=== PATIENT | female | born 1995 | race Caucasian/White ===

== ENCOUNTER 2020-02-04 10:46 | Emergency (ER) | payer OTHER ==
--- NOTE | 2020-02-04 11:41 | ER Document Report ---
ED Medical Screen (RME) - General Chief Complaint: Palpitations Stated Complaint: PALPITATIONS Time Seen by Provider: 02/04/20 11:32 - HPI Notes: 02/04/20 11:38 24-year-old female presents emergency room for evaluation after having a syncopal event yesterday at work. Patient states she was standing with a group of friends and then started to walk away and then she had blurred vision and passed out, states her friends caught her. She states that she came right to. Denies that this is ever happened before. Reports lately she has been having a "thumping" sensation in her chest, she did see her PCP 2 weeks ago and states a ll of her labs were normal. Patient states she does not smoke does not use any workout supplements or any illicit drug use. She does drink a couple coffee in the morning. Patient denies ever having a syncopal event like this before. surgical history of back surgery and a . Does not take any everyday medications. Denies any current chest pain shortness of breath, nausea vomiting, headache, blurred vision double vision or loss of vision. I have greeted and performed a rapid initial assessment of this patient. A comprehensive ED assessment and evaluation of the patient, analysis of test results and completion of the medical decision making process will be conducted by additional ED providers. PHYSICAL EXAMINATION: GENERAL: Well-appearing, well-nourished and in no acute distress. HEAD: Atraumatic, normocephalic. EYES: Pupils equal round extraocular movements intact, conjunctiva are normal. NECK: Normal range of motion CV: s1, s2 regular LUNGS: No respiratory distress Musculoskeletal: Normal range of motion NEUROLOGICAL: Normal speech, normal gait. SKIN: Warm, Dry, normal turgor, no rashes or lesions noted. Physical Exam - Vital signs Vitals: Temp Pulse Resp BP Pulse Ox 98.5 F 71 18 110/63 99 02/04/20 11:02/04/20 11:02/04/20 11:02/04/20 11:02/04/20 11:00 Course - Vital Signs Vital signs: Temp Pulse Resp BP Pulse Ox 98.5 F 71 18 110/63 99 02/04/20 11:02/04/20 11:00 02/04/20 11:02/04/20 11:02/04/20 11:00
[2020-02-04 12:00] LABS: ABSOLUTE BASOPHILS # (AUTO) 0.1 10^3/uL (0.0-0.2); ABSOLUTE EOSINOPHILS # (AUTO) 0.1 10^3/uL (0.0-0.6); ABSOLUTE LYMPHOCYTES (AUTO) 2.7 10^3/uL (0.5-4.7); ABSOLUTE MONOCYTES (AUTO) 0.6 10^3/uL (0.1-1.4); ABSOLUTE NEUT (AUTO) 4.1 10^3/uL (1.7-8.2); BASOPHILS % (AUTO) 0.8 % (0-2); EOSINOPHILS % (AUTO) 0.9 % (0-6); HEMATOCRIT 42.3 % (36.0-47.0); HEMOGLOBIN 14.1 g/dL (12.0-15.5); LYMPHOCYTES % (AUTO) 35.9 % (13-45); MEAN CORPUSCULAR HEMOGLOBIN 30.2 pg (27.0-33.4); MEAN CORPUSCULAR HGB CONC 33.3 g/dL (32.0-36.0); MEAN CORPUSCULAR VOLUME 91 fl (80-97); MONOCYTES % (AUTO) 8.3 % (3-13); PLATELET COUNT 318 10^3/uL (150-450); RED BLOOD COUNT 4.65 10^6/uL (3.72-5.28); RED CELL DISTRIBUTION WIDTH 13.5 % (11.5-14.0); SEGMENTED NEUTROPHILS % (AUTO) 54.1 % (42-78); TOTAL CELLS COUNTED % (AUTO) 100 %; WHITE BLOOD COUNT 7.6 10^3/uL (4.0-10.5)
[2020-02-04 12:06] LABS: APPEARANCE,URINE CLEAR; BILIRUBIN,URINE NEGATIVE (NEGATIVE); COLOR,URINE YELLOW; GLUCOSE, URINE NEGATIVE (NEGATIVE); KETONES,URINE NEGATIVE (NEGATIVE); LEUKOCYTE ESTERASE,URINE NEGATIVE (NEGATIVE); NITRITE,URINE NEGATIVE (NEGATIVE); PROTEIN,URINE NEGATIVE (NEGATIVE); UROBILINOGEN,URINE NEGATIVE mg/dL (<2.0)
[2020-02-04 12:19] LABS: ALBUMIN 4.8 g/dL (3.5-5.0); ALKALINE PHOSPHATASE 56 U/L (38-126); ANION GAP 6 (5-19); ASPARTATE AMINO TRANSFERASE 36 U/L (14-36); BILIRUBIN,TOTAL 0.7 mg/dL (0.2-1.3); BLOOD UREA NITROGEN 14 mg/dL (7-20); CALCIUM 9.7 mg/dL (8.4-10.2); CARBON DIOXIDE 29 mmol/L (22-30); CHLORIDE 102 mmol/L (98-107); GLUCOSE 92 mg/dL (75-110); POTASSIUM 4.6 mmol/L (3.6-5.0); TOTAL PROTEIN 7.9 g/dL (6.3-8.2)
--- NOTE | 2020-02-04 12:30 | RADIOLOGY REPORT (SQ) ---
EXAM DESCRIPTION: CHEST 2 VIEWS IMAGES COMPLETED DATE/TIME: 02/04/2020 12:21 pm REASON FOR STUDY: syncopal event yesterday COMPARISON: None. EXAM PARAMETERS: NUMBER OF VIEWS: two views TECHNIQUE: Digital Frontal and Lateral radiographic views of the chest acquired. RADIATION DOSE: NA LIMITATIONS: none FINDINGS: LUNGS AND PLEURA: No opacities, masses or pneumothorax. No pleural effusion. MEDIASTINUM AND HILAR STRUCTURES: No masses or contour abnormalities. HEART AND VASCULAR STRUCTURES: Heart normal size. No evidence for failure. BONES: No acute findings. HARDWARE: None in the chest. OTHER: No other significant finding. IMPRESSION: 1. NO ACUTE RADIOGRAPHIC FINDING IN THE CHEST. TECHNICAL DOCUMENTATION: JOB ID: [id number] 2010 [employer]- All Rights Reserved Reading location - IP/workstation name: [email or web address]
--- NOTE | 2020-02-04 15:57 | ER Document Report ---
ED General - General Chief Complaint: Syncope Stated Complaint: PALPITATIONS Time Seen by Provider: 02/04/20 11:32 Notes: Patient is a 24-year-old white female with no significant past medical history who presents to the emergency department with a chief complaint of palpitations that began about 3 months ago. She states the episodes are random in nature. Reports that they are usually quickly transient. No warning signs or symptoms. Denies any provocative or palliative factors. She states that when these episodes happen it feels as though her heart is pounding very hard in her chest. She states it does not feel like it is beating fast just pounding hard. She states it creates pain in the chest and often causes her to become lightheaded. She states today while at work she was standing with a group of people when she suddenly had 1 of these episodes she began to feel faint and states her friends helped lower her to the ground. She states she only briefly lost consciousness for a few seconds. She states she called her primary doctor who referred her to the emergency department. She states her primary doctor has worked her up for this in the past and told her that her blood tests were normal. She is not seen a painter and body mechanic apprentice or any other specialist. No family history of anything similar. Patient denies any drugs or alcohol or smoking. Past Medical History - Social History Smoking Status: Never Smoker Chew tobacco use (# tins/day): No Frequency of alcohol use: Rare Drug Abuse: None Family History: Reviewed & Not Pertinent Patient has homicidal ideation: No Review of Systems - Review of Systems Constitutional: denies: Fever EENT: denies: Throat pain Cardiovascular: Chest pain, Palpitations, Lightheaded Respiratory: denies: Short of breath Gastrointestinal: denies: Abdominal pain, Diarrhea, Nausea, Vomiting Genitourinary: denies: Pain Female Genitourinary: denies: Vaginal discharge Musculoskeletal: denies: Muscle pain, Muscle stiffness Skin: denies: Change in color Hematologic/Lymphatic: denies: Easy bleeding Neurological/Psychological: Lost consciousness. denies: Headaches Physical Exam - Vital signs Vitals: Temp Pulse Resp BP Pulse Ox 98.5 F 71 18 110/63 99 02/04/20 11:00 02/04/20 11:00 02/04/20 11:00 02/04/20 11:00 02/04/20 11:00 - General General appearance: Appears well, Alert In distress: None - HEENT Head: Normocephalic, Atraumatic Eyes: Normal Pupils: PERRL Neck: Supple. No: Thyromegally - Respiratory Respiratory status: No respiratory distress Chest status: Nontender Breath sounds: Normal Chest palpation: Normal - Cardiovascular Rhythm: Regular Heart sounds: Normal auscultation Murmur: No - Extremities General upper extremity: Normal inspection, Nontender, Normal color, Normal ROM, Normal temperature General lower extremity: Normal inspection, Nontender, Normal color, Normal ROM, Normal temperature, Normal weight bearing. No: Joanna's sign - Neurological Neuro grossly intact: Yes Cognition: Normal Orientation: AAOx4 Trang Coma Scale Eye Opening: Spontaneous [place] Coma Scale Verbal: Oriented Trang Coma Scale Motor: Obeys Commands Trang Coma Scale Total: 15 Speech: Normal Cranial nerves: Normal Cerebellar coordination: Normal Motor strength normal: LUE, RUE, LLE, RLE Additional motor exam normals: Equal data assistant Sensory: Normal - Psychological Associated symptoms: Normal affect, Normal mood - Skin Skin Temperature: Warm Skin Moisture: Dry Skin Color: Normal Course - Re-evaluation Re-evalutation: 02/04/20 15:57 Work-up is unremarkable. EKG within normal limits. EKG was sinus rhythm normal intervals. No dysrhythmias. No STEMI. Interpreted by ED attending. Patient is fine here, asymptomatic. She is low risk for the syncopal episode per the [place] syncope rule. We will refer her to cardiology for Holter monitor testing and further outpatient work-up and management. I counseled her regarding the importance of outpatient follow-up and advised she return here or any ER immediately with any new, persistent or worsening symptoms. She verbalized understood and agreed. The patient reports that she has an outpatient appointment with her PCP tomorrow for reevaluation already. 02/04/20 15:59 No [id number] on EKG. Patient is PERC negative. - Vital Signs Vital signs: Temp Pulse Resp BP Pulse Ox 98.5 F 71 18 110/63 99 02/04/20 11:00 02/04/20 11:00 02/04/20 11:00 02/04/20 11:00 02/04/20 11:00 - Laboratory Result Diagrams: 02/04/20 11:45 02/04/20 11:45 Discharge - Discharge Clinical Impression: Palpitations Syncopal episodes Qualifiers: Syncope type: unspecified Qualified Code(s): R55 - Syncope and collapse Condition: Stable Disposition: HOME, SELF-CARE Instructions: Palpitations (Irregular or Rapid Heartrate) ([facility]) Additional Instructions: Follow-up with your regular doctor in 2 to 3 days for reevaluation. Please call the painter and body mechanic apprentice for outpatient follow-up as referred. Return here or any ER i mmediately with any new, persistent or worsening symptoms. Referrals: MICHAEL RANGEL MD [ACTIVE STAFF] - Follow up as needed
[2020-02-04 16:28] VITALS: BP 113/65
--- NOTE | 2020-02-05 08:39 | EKG REPORT ---
SEVERITY:- NORMAL ECG - SINUS RHYTHM : Confirmed by: Berkley Polo MD 05-Feb-2020 08:37:34
== END 2020-02-04 16:20 | disposition home or self-care (01) ==
LOC: ER 10:46
DX: R55 Syncope and collapse (principal); R00.2 Palpitations; R07.9 Chest pain, unspecified; R42 Dizziness and giddiness
CPT/HCPCS: 36415; 71046; 80053; 81001; 81025; 82962; 84443; 84484; 85025; 93005; 93010; 99285